=== PATIENT | male | born 1980 | race Caucasian/White ===

== ENCOUNTER 2018-02-01 11:17 | Emergency (ER) | payer OTHER ==
[~2018-02-01] VITALS: Ht 175.3 cm; Wt 117.9 kg
[~2018-02-01 11:17] MED LIST: ALBUTEROL INHAL17 GM IH; ALPRAZOLAM 0.50.5 M1; AVELOX400 MG PO; IBUPROFEN 800800 M1 PO; NORCO 5-325 TA1 EACH PO; ULTRAM 50MG TAB50 MG PO; ZOFRAN 4 MG ORAL4 M1 DIS
[2018-02-01] MEDS ORDERED: OMEPRAZOLE40 MG PO (11:37)
[2018-02-01 11:48] VITALS: BP 148/94
[2018-02-01] MEDS ORDERED: MEDROLDOSEPACK PO (11:48)
== END 2018-02-01 11:48 | disposition home or self-care (01) ==
LOC: M.ERS 11:17
DX: J04.0 Acute laryngitis (principal); J30.9 Allergic rhinitis, unspecified; F41.9 Anxiety disorder, unspecified

== ENCOUNTER 2020-09-27 23:01 | Emergency (ER) | payer OTHER ==
[~2020-09-27] VITALS: Ht 175.3 cm; Wt 116.1 kg
[~2020-09-27 23:01] MED LIST changes: +MEDROLDOSEPACK PO; +OMEPRAZOLE40 MG PO
[2020-09-27] MEDS ORDERED: XANAX1 MG PO (23:17)
[2020-09-28 03:05] VITALS: BP 151/77
== END 2020-09-28 03:05 | disposition home or self-care (01) ==
LOC: M.ERS 23:01
DX: S62.344A Nondisplaced fracture of base of fourth metacarpal bone, right hand, initial encounter for closed fracture (principal); S80.211A Abrasion, right knee, initial encounter; F41.9 Anxiety disorder, unspecified; Z98.890 Other specified postprocedural states; Z79.899 Other long term (current) drug therapy; W01.0XXA Fall on same level from slipping, tripping and stumbling without subsequent striking against object, initial encounter; Y93.89 Activity, other specified; Y92.89 Other specified places as the place of occurrence of the external cause; Y99.8 Other external cause status